=== PATIENT | male | born 1960 | race Caucasian/White ===

== ENCOUNTER → 2022-05-21 16:36 | Outpatient (BNVA) | payer BC, SELFPAY | PROVIDERS: Visit Provider Registered Nurse | DX: U07.1 COVID-19 (principal); J06.9 Acute upper respiratory infection, unspecified; M25.50 Pain in unspecified joint; R06.02 Shortness of breath; R05.8 Other specified cough | CPT/HCPCS: 80053; 82306; 82607; 85025; 85651; 86141; 86431 ==

== ENCOUNTER 2022-06-18 07:09 | Outpatient (CLI) | payer BC, SELFPAY ==
--- NOTE | 2022-06-18 07:15 | CT_ITS ---
WS: [id number] LDCT LUNG CANCER SCREENING TECHNIQUE: Noncontrast CT of the chest with coronal and sagittal reformatted images. CLINICAL INFORMATION: Z12.2 - Encounter for screening for malignant neoplasm of... COMPARISON: None. DLP: 152.18 mGy.cm DIvol: Mean CTDIvol: 1.60 (mGy),Mean CTDIvol: 1.60 (mGy) All CT scans at [facility] use at least one of these dose optimization techniques: automat ed exposure control; mA and/or kV adjustment per patient size (includes targeted exams where dose is matched to clinical indication); or iterative reconstruction. FINDINGS: Lungs are well aerated. No acute pulmonary infiltrates. No suspicious pulmonary parenchymal normalities. Mild aortic calcification. Normal caliber thoracic aorta. No mediastinal or hilar lymphadenopathy. No axillary lymphadenopathy. Adrenal glands appear normal. Normal GE junction. Mild thoracic curve. Mil d thoracic kyphosis. Chronic anterior wedging lower thoracic spine. CT/CT lung screening [id number] IMPRESSION: LUNG-RADS: 1-Negative FOLLOW UP: 12 Month: Continue annual screening with LDCT
== END 2022-06-18 07:10 | disposition home or self-care (01) ==
LOC: RAD 07:17
PROVIDERS: PCP Registered Nurse; Visit Provider Registered Nurse
DX: Z12.2 Encounter for screening for malignant neoplasm of respiratory organs (principal)
CPT/HCPCS: 71271

== ENCOUNTER 2022-07-17 07:42 | Day surgery (SDC) | payer BC, SELFPAY ==
[2022-07-17 08:05] VITALS: BP 103/56; PULSE 56; RESP 16; TEMP 36.1; O2SAT 96
[2022-07-17] MEDS: sodium chloride 0.9% 1,000 ML 30 ML IV (08:10)
--- NOTE | 2022-07-17 08:17 | ANES.PREANE2 ---
Pre-Anesthetic Assessment Height/Weight: Height 1.78 m Weight 68.039 kg Temp Pulse Resp BP Pulse Ox O2 Del Method 97.0 F L 56 L 16 103/56 96 07/17/22 08:05 07/17/22 08:05 07/17/22 08:05 07/17/22 08:05 07/17/22 08:05 07/17/22 08:05 Preop Diagnosis: screening Operation Date: 07/17/22 09:15 Proposed Procedures p 10623 colon Z12.11(Not Applicable) - Agustin Donahue DO Was Beta Carla taken within 24 hours: N/A Was Clonidine taken within 24 hours: N/A Last intake: Intake Last Liquid Date 07/16/22 Last Liquid Time 19:00 Last Solid Date 07/15/22 Last Solid Time 20:00 Exam alert, oriented x 3, clear to auscultation bilaterally and regular rate & rhythm Airway Submandibular: within normal limits Cervical ROM: within normal limits Mallampati: Class I Dentition: chipped History/ROS No significant history except as noted and No significant complaints Pulmonary smoker, last cig this morning CV/HEM Hypertension None reported Hepatic None reported GI None reported Metabolic None reported Musc/skel None reported Neuropsych None reported Anesthetic Plan ASA status: 2 Anesthesia: Anesthesia Evaluation and MAC Other: daily THC Risk of > 500 ml blood loss (7ml/kg in children): Yes, adequate IV access and fluids planned Medications/Allergies Home Medications Medication Instructions Recorded Confirmed Last Taken Type meloxicam 15 mg tablet 15 mg PO DAILY 07/16/22 07/17/22 07/16/22 History Allergies Allergy/AdvReac Type Severity Reaction Status Date / Time Penicillins Allergy Unknown Verified 07/17/22 07:58 Current Medications Generic Name Dose Route Start Last Admin Trade Name Freq PRN Reason Stop Dose Admin Sodium Chloride 1,000 mls @ 30 mls/hr 07/17/22 08:00 07/17/22 08:10 Sodium Chloride 0.9% IV 07/18/22 07:59 30 mls/hr .Q24H SHAHRZAD Administration PFSH Anesthesia Surgical History (Updated 07/17/22 @ 08:29 by Agustin Donahue DO) History of appendectomy Social History Smoking and tobacco status: current every day smoker Alcohol intake: never Adopted: No Caregiver/support person: No Lives independently: No Household members: spouse Marital status: service: No Current occupational status: employed Sexually active: Yes Current gender identity: Male Data Anesthesia Cardiac Studies: No Data to Display
--- NOTE | 2022-07-17 08:28 | PM.HP ---
Providers/Chief Complaint Primary Care Provider: AZEB Nieto Chief Complaint: encounter for screening for malignant neoplasm of History of Present Illness Jesus Mehta is a 61 year old male here for his first screening colonoscopy. He denies any family history of colon cancer, hematochezia and/or melena Medications/Allergies Home Medications Medication Instructions Recorded Confirmed Last Taken Type meloxicam 15 mg tablet 15 mg PO DAILY 07/16/22 07/17/22 07/16/22 History Allergies Allergy/AdvReac Type Severity Reaction Status Date / Time Penicillins Allergy Unknown Verified 07/17/22 07:58 PFSH Acute PFSH: Surgical History (Updated 07/17/22 @ 08:29 by Agustin Donahue DO) History of appendectomy Social History Smoking and tobacco status: current every day smoker Alcohol intake: never Adopted: No Caregiver/support person: No Lives independently: No Household members: spouse Marital status: service: No Current occupational status: employed Sexually active: Yes Current gender identity: Male Vitals/I&O/Wt Last Vital Signs Temp 97.0 F L 07/17/22 08:05 Pulse 56 L 07/17/22 08:05 Resp 16 07/17/22 08:05 BP 103/56 07/17/22 08:05 Pulse Ox 96 07/17/22 08:05 O2 Del Method 07/17/22 08:05 Weight last 48 hrs Weight 150 lb A&P Assessment and plan (1) Colon cancer screening: Plan Colonoscopy The risks and benefits of the procedure, including bleeding, infection, intestinal perforation requiring surgery, missed lesion were explained to the patient. The patient is understanding of the risks and wishes to proceed. Attestations Medical Necessity Statement*: Home Coding Level of Care Code Acute Code for Chg Fwd Diagnoses Colon cancer screening Z12.11
[2022-07-17 08:48] VITALS: BP 97/56; PULSE 56; RESP 14; O2SAT 96
[2022-07-17 09:03] VITALS: BP 117/70; PULSE 50; RESP 16; O2SAT 99
--- NOTE | 2022-07-17 15:24 | ANE.PACU2 ---
Inpatient post-anesthesia follow up: Airway intact: Yes Vital signs: Temperature 97.0 F Pulse Rate 50 Respiratory Rate 16 Blood Pressure 117/70 Pulse Oximetry 99 Oxygen Delivery Me thod Room Air Oxygen Flow Rate Fraction of Inspir ed Oxygen Hydration adequate: Yes Nausea and vomiting: No Pain level: 2 Mental status: Baseline
== END 2022-07-17 09:20 | disposition home or self-care (01) ==
PROVIDERS: PCP Registered Nurse; Visit Provider Surgery
PROC: 0DJD8ZZ Inspection of Lower Intestinal Tract, Via Natural or Artificial Opening Endoscopic (ICD-10-PCS; CPT 45378; principal; 2022-07-17 09:15)
DX: Z12.11 Encounter for screening for malignant neoplasm of colon (principal); F17.210 Nicotine dependence, cigarettes, uncomplicated; I10 Essential (primary) hypertension
CPT/HCPCS: 45378; J2704; J7030

== ENCOUNTER → 2023-04-04 11:20 | Outpatient (BNVA) | payer BC, SELFPAY | PROVIDERS: PCP Registered Nurse; Visit Provider Registered Nurse | DX: N39.0 Urinary tract infection, site not specified (principal); R39.9 Unspecified symptoms and signs involving the genitourinary system | CPT/HCPCS: 81000; 87086 ==